=== PATIENT | male | born 1975 | race Caucasian/White ===

== ENCOUNTER → 2017-06-03 13:35 | Outpatient (CLI) | payer BC, SELFPAY ==
--- NOTE | 2017-06-03 13:44 | ECHOD_ITS ---
Reason For Study: HYPERTENSION Procedure This was a 2D Doppler, Color Flow transthoracic echocardiogram. Exam performed in department. Left Ventricle Normal size and thickness. The estimated ejection fraction is 65 %. Normal diastology for age. No regional wall motion abnormalities noted. Right Ventricle Normal size and thickness. Normal systolic function. Atria Normal left atrium. Normal right atrium. Normal atrial septum. Mitral Valve The mitral valve is structurally normal. No prolapse or stenosis seen. Tricuspid Valve Normal tricuspid valve. Trivial tricuspid valve insufficiency. Right ventricular systolic pressure estimated to be 23 mmHg. Aortic Valve Normal aortic valve. Trisinus/trileaflet aortic valve. Pulmonic Valve Normal pulmonic valve. Great Vessels Normal aortic root. Normal arch. Normal inferior vena cava. Inferior vena cava collapse with sniff. Pericardium/Pleural No pericardial effusion. MMode/2D Measurements & Calculations LVIDd: 4.7 cm IVSd: 0.94 cm Ao root diam: 3.0 cm LVIDs: 3.0 cm LVPWd: 1.0 cm LA dimension: 3.8 cm RVDd: 3.6 cm FS: 35.4 % LAV(MOD-bp): 53.9 ml EDV(MOD-sp4): 164.3 ml EDV(MOD-sp2): 180.8 ml LAV(MOD-bp) Indexed: 24.3 ml/m2 ESV(MOD-sp4): 61.1 ml EF(MOD-sp2): 66.4 % LAV(MOD-sp2): 51.4 ml EF(MOD-sp4): 62.8 % LAV(MOD-sp4): 47.8 ml SV(MOD-sp4): 103.1 ml SV(MOD-sp2): 120.0 ml LA A4 area: 18.2 cm2 RA A4 area: 17.4 cm2 Doppler Measurements & Calculations MV E max sylvia: 72.9 cm/sec Ao V2 max: 129.5 cm/sec LV V1 max: 124.4 cm/sec MV A max sylvia: 59.3 cm/sec Ao max P.7 mmHg LV V1 max P.2 mmHg MV E/A: 1.2 PA V2 max: 139.5 cm/sec PI end-d sylvia: 109.0 cm/sec TR max sylvia: 209.8 cm/sec TR max P.6 mmHg Interpretation Summary The estimated ejection fraction is 65 %. Normal diastology for age. Trivial tricuspid valve insufficiency. Right ventricular systolic pressure estimated to be 23 mmHg. There is no comparison study available. Ordering Physician: CHRISTIANO ENGLE Referring Physician: DOCTOR, OUT OF TOWN Performed By: Karli Barriga, KUNAL, RVT
== END ==
DX: I10 Essential (primary) hypertension (principal); R06.00 Dyspnea, unspecified; R94.31 Abnormal electrocardiogram [ECG] [EKG]
CPT/HCPCS: 93306

== ENCOUNTER → 2023-04-24 | Outpatient (CLI) | payer BC, SELFPAY ==
--- NOTE | 2023-04-24 09:51 | ECHOD_ITS ---
Reason For Study: SOB ON EXERTION Procedure This was a 2D Doppler, Color Flow transthoracic echocardiogram. Exam performed in department. Left Ventricle Normal LV size. Left ventricular systolic function is normal. The estimated ejection fraction is 70 %. Normal diastology for age. No regional wall motion abnormalities noted. Right Ventricle Normal RV size. Normal systolic function. Atria The left and right atria are normal. Normal right atrium. Mitral Valve Normal mitral valve. Tricuspid Valve Normal tricuspid valve. Mild tricuspid valve insufficiency. Pulmonary artery systolic pressure is 24 mmHg. Aortic Valve Normal aortic valve. Pulmonic Valve Normal pulmonic valve. Great Vessels Normal aortic root. The pulmonary artery is normal size. Normal inferior vena cava. Pericardium/Pleural No pericardial effusion. MMode/2D Measurements & Calculations LVIDd: 4.1 cm IVSd: 0.99 cm Ao root diam: 3.0 cm LVIDs: 2.8 cm LVPWd: 0.82 cm RVDd: 3.9 cm FS: 30.3 % LAV(MOD-bp): 49.0 ml LVAd ap4: 38.1 cm2 SV(MOD-sp4): 87.5 ml LAV(MOD-bp) Indexed: 22.2 ml/m2 LVLd ap4: 8.9 cm LAV(MOD-sp2): 48.8 ml EDV(MOD-sp4): 131.0 ml LAV(MOD-sp4): 45.7 ml EDV(sp4-el): 138.0 ml LVAs ap4: 19.4 cm2 LVLs ap4: 7.3 cm ESV(MOD-sp4): 43.5 ml ESV(sp4-el): 43.5 ml EF(MOD-sp4): 66.8 % EF(sp4-el): 68.5 % SV(sp4-el): 94.5 ml LA A4 area: 17.6 cm2 LA dimension(2D): 3.5 cm RA A4 area: 17.9 cm2 Time Measurements MV dec time: 0.26 sec Doppler Measurements & Calculations MV E max hank: 67.8 cm/sec Lat Peak E' Hank: 16.9 cm/sec Med Peak E' Hank: 12.7 cm/sec MV A max hank: 63.1 cm/sec E/E' lat: 4.0 E/E' med: 5.3 MV E/A: 1.1 Ao V2 max: 135.2 cm/sec LV V1 max: 136.5 cm/sec PA V2 max: 128.1 cm/sec Ao max P.3 mmHg LV V1 max P.5 mmHg TR max hank: 233.4 cm/sec TR max P.8 mmHg ECHO/Echo Complete Interpretation Summary Normal LV size. Left ventricular systolic function is normal. The estimated ejection fraction is 70 %. Structurally normal valves. Ordering Physician: Yareli Jasso Referring Physician: Yareli Jasso Performed By: Cyn Ruiz RDCS
--- OUTSIDE RECORDS SUMMARY | 2023-04-24 10:16 | XMS RPT_ITS | CCD ---
Author Name Unknown Address [address] [place] [address] Organization [facility] Care Team Providers Care Clinical Science Liaison Name Role Phone KADIE ARIAS, CHRISTIANO Attending Unavailable KADIE ARIAS, CHRISTIANO Primary Care Unavailable KADIE ARIAS, CHRISTIANO Attending Unavailable KADIE ARIAS, CHRISTIANO Primary Care Unavailable KADIE ARIAS, CHRISTIANO Attending Unavailable KADIE ARIAS, CHRISTIANO Primary Care Unavailable KADIE ARIAS, CHRISTIANO Attending Unavailable KADIE ARIAS, CHRISTIANO Primary Care Unavailable KADIE ARIAS, CHRISTIANO Attending Unavailable KADIE ARIAS, CHRISTIANO Primary Care Unavailable KADIE ARIAS, CHRISTIANO Primary Care Unavailable KADIE ARIAS, CHRISTIANO Attending Unavailable Results Test Name Value Interpretation Reference Range Facil ity Encounters Encounter Date Encounter Type Care Provider Facility Start: 03-27-2023 ambulatory CHRISTIANO ENGLE MD Facilit y:[email or web address] Start: 02-12-2023 ambulatory CHRISTIANO ENGLE MD Facilit y:[facility] Start: 02-09-2023 End: 02-10-2023 ambulatory CHRISTIANO ENGLE MD Facility:[id number] Start: 02-09-2023 End: 02-10-2023 ambulatory CHRISTIANO ENGLE MD Facility:[id number] Start: 08-28-2022 End: 08-28-2022 ambulatory CHRISTIANO ENGLE MD Facility:[facility] Payers Date Payer Category Payer Unknown [id number] 1975 Unknown [id number] 2.16.8 [id number] 1975 Unknown [id number] 2.16.8 [id number] 1975 Unknown [id number] 2.16.8 [id number] 1975 Unknown [id number] 2.16.8 [id number] 1975 Unknown [id number] 2.16.8 [id number] 1975 Unknown [id number] 2.16.8 [id number] Unknown Summary Purpose Family History No Family History Records FoundNo Family History Records FoundNo Family History Records Found Advance Directives No Advanced Directives Records FoundNo Advanced Directives Records FoundNo Advanced Directives Records Found Additional Source Comments (unrecognized sect ion and content) No Status Records FoundNo Status Records FoundNo Status Records Found INFORMATION SOURCE (unrecogn ized section and content) DATE CREATED AUTHOR AUTHOR'S ORGANIZ ATION 02/14/2023 [facility] DATE CREATED AUTHOR AUTHOR'S ORGANIZ ATION 03/29/2023 [facility] FOR RECORDS PERTAINING TO PATIENTS WHO ARE OR HAVE BEEN ENROLLED IN A CHEMICAL DEPENDENCY/SUBSTANCEABUSE PROGRAM, SOME INFORMATION MAY BE OMITTED. This clinical summary was aggregated from multiple sources. Caution should be exercised in using it in the provision of clinical care. This summary normalizes information from multiple sources, and as a consequence, information in this document may materially change the coding, format and clinical context of patient data. In addition, data may be omitted in some cases. CLINICAL DECISIONS SHOULD BE BASED ON THE PRIMARY CLINICAL RECORDS. [facility] [employer] [facility]. provides no warranty or guarantee of the accuracy or completeness of information in this document.
== END | disposition home or self-care (01) ==
LOC: CVS 09:47
PROVIDERS: PCP Internal Medicine Geriatric Medicine; Referring Provider Internal Medicine Geriatric Medicine; Visit Provider Internal Medicine Geriatric Medicine
DX: R06.02 Shortness of breath (principal); R94.31 Abnormal electrocardiogram [ECG] [EKG]
CPT/HCPCS: 93306

== ENCOUNTER 2023-04-29 08:28 | Day surgery (SDC) | payer BC, SELFPAY ==
--- OUTSIDE RECORDS SUMMARY | 2023-04-29 08:50 | XMS RPT_ITS | CCD ---
Author Name Unknown Address [address] [place] [address] Organization [facility] Care Team Providers Care Rectangular [employer] Cooper Name Role Phone KADIE ARIAS, CHRISTIANO Attending [...] 02-09-2023 End: 02-10-2023 ambulatory CHRISTIANO ENGLE MD Facility:[id number] Start: 02-09-2023 End: 02-10-2023 ambulatory CHRISTIANO ENGLE MD Facility:[facility] Start: 08-28-2022 End: 08-28-2022 ambulatory CHRISTIANO ENGLE MD Facility:[facility] Payers Date Payer Category Payer Unknown [id number] 1975 Unknown [id number] 2.16.8 [id number] 1975 Unknown [id number] 2.16.8 [id number] 1975 Unknown [id number] 2.16.8 [id number] 1974 Unknown [id number] 2.16.8 [id number] 1974 Unknown [id number] 2.16.8 [id number] 1975 Unknown [id number] 2.16.8 [id number] Unknown Summary Purpose Family History No Family [...] DATE CREATED AUTHOR AUTHOR'S ORGANIZ ATION 02/14/2023 [facility] DATE CREATED AUTHOR AUTHOR'S ORGANIZ ATION 03/29/2023 [facility] FOR RECORDS PERTAINING TO [...] BE BASED ON THE PRIMARY CLINICAL RECORDS. [facility] [employer] [facility]. provides no warranty or guarantee of the accuracy or completeness of information in this document.
[2023-04-29] MEDS: Lactated Ringers 1,000 ML 15 ML IV (08:57)
[2023-04-29 09:02] VITALS: BP 121/70; PULSE 68; RESP 18; TEMP 36.2; O2SAT 100; BMI 29.9
--- NOTE | 2023-04-29 09:32 | PCM.HP.STD ---
HPI - General General Date of Admission: 04/29/23 Date of Service: 04/29/23 Chief Complaint: Screening colonoscopy HPI Narrative SHAREE HIDALGO, is a 47 M who presents today for screening colonoscopy. He is not have any problems with he is not have any bowel pain. He does not have any chest pain or shortness of breath. He has past medical history of psoriatic arthritis on treatment. He did have a colonoscopy was over 15 years ago. He denies any lower GI bleeding. He denies any constipation. There has been no change in his bowel or bladder habits recently. [facility] Medical History (Updated 04/24/23 @ 12:26 by Deya Tenorio) 1st degree AV block Anxiety Back pain DDD (degenerative disc disease) High cholesterol History of echocardiogram History of hiatal hernia HTN (hypertension) Hx of colonic polyps Hypercholesteremia Motion sickness Non-smoker JORGE (obstructive sleep apnea) Psoriasis Wears glasses Home Medications atorvastatin 40 mg tablet 40 mg PO DAILY 04/02/23 [History Last Taken Unknown] azelastine 137 mcg (0.1 %) nasal spray aerosol 1 spray intranasal BID PRN ALLERGIES 04/02/23 [History Last Taken Unknown] cholecalciferol (vitamin D3) 125 mcg (5,000 unit) capsule 125 mcg PO DAILY 04/02/23 [History Last Taken Unknown] scopolamine base 1 mg over 3 days transdermal patch 1 patch transdermal Q72H PRN motion sickness 04/02/23 [History Last Taken Unknown] ixekizumab 80 mg/mL subcutaneous auto-injector (Taltz Autoinjector) 80 mg subcut .Q2 WEEKS 04/24/23 [History Last Taken Unknown] ketoconazole 2 % topical cream 1 applic topical DAILY 04/24/23 [History Last Taken Unknown] tapinarof 1 % topical cream (Vtama) 1 applic topical DAILY 04/24/23 [History Last Taken Unknown] Allergy/AdvReac Type Severity Reaction Status Date / Time amoxicillin Allergy Itching Verified 04/24/23 12:04 cat dander Allergy Itching Verified 04/24/23 12:04 grass pollen Allergy Itching Verified 04/24/23 12:04 house dust Allergy Itching Verified 04/24/23 12:04 Penicillins Allergy Itching Verified 04/24/23 12:04 Family History (Updated 04/02/23 @ 09:05 by Josseline Hussein) Mother Breast cancer Surgical History (Updated 04/24/23 @ 12:26 by Deya Tenorio) History of surgery on wrist Hx of colonoscopy Hx of esophagogastroduodenoscopy Hx of oral surgery Social History (Updated 04/02/23 @ 09:07 by Josseline Hussein) current occupational status: employed Smoking Status: Never smoker alcohol intake: current alcohol intake frequency: a few times a week Alcohol type: beer substance use type: does not use ROS Review of Systems ROS Unobtainable: other Constitutional Constitutional: Denies fatigue, fever(s), poor appetite, weight gain or weight loss ENT HEENT: Denies mouth lesions Cardiovascular Cardiovascular: Denies abdominal bloating, abdominal edema or abdominal pain Respiratory/Chest Respiratory/Chest: Denies change in mental status, change in phlegm color, chest congestion or chest tightness Gastrointestinal Gastrointestinal: Denies belching, bloating, change in bowel habits, change in stool character, chewing difficulty, coffee ground emesis, constipation, cramping, diarrhea, dyspepsia, dysphagia, early satiety, excessive flatus, fecal incontinence, heartburn, hematemesis, hematochezia, hemorrhoids, loose stools, melena, nausea, odynophagia, rectal bleeding, tenesmus, vomiting or weight changes Genitourinary Genitourinary: Denies abdominal discomfort, burning urination or itching Musculoskeletal Musculoskeletal: Reports as per HPI; Denies muscle weakness or myalgias Integumentary Integumentary: Denies jaundice Neurologic Neurologic: Denies lack of coordination or weakness Psychiatric Psychiatric: Denies confusion, depression, memory loss, mood swings, paranoia or suicidal ideation Endocrine Endocrinology: Denies systems reviewed and no addt'l complaints, except as documented Hematologic/Lymphatic Hematologic/Lymphatic: Denies anemia, easy bleeding, easy bruising or lymphadenopathy Allergic/Immunologic Allergic/Immunologic: Denies systems reviewed and no addt'l complaints, except as documented Vital Signs Vital Signs Vital Signs: 04/29/23 09:02 04/29/23 09:02 Temperature 97.1 F L Temperature Source Temporal Pulse Rate 68 Respiratory Rate 18 Respiratory Pattern Normal Blood Pressure 121/70 H Blood Pressure Mean 87 Blood Pressure Source Monitor Blood Pressure Position Semi-Fowlers Blood Pressure Location Left Arm Pulse Ox 100 Oxygen Delivery Method Room Air Weight Weight: 215 lb Body Mass Index (BMI) 29.9 Physical Exam Const alert, oriented x3, no apparent distress, healthy appearing and well nourished General Appearance: cooperative, comfortable, well kempt and well developed Orientation / Consciousness: awake and oriented to person HEENT Head and Scalp: normocephalic and atraumatic Face and Sinus: normal facial exam Mouth: oral and palatal mucosa normal Eyes General Eye: normal appearance of both eyes Neck full ROM Lymph Lymphatic: no lymphadenopathy noted Chest inspection of chest normal Resp normal respiratory effort and no use of accessory muscles Cardio regular rate and regular rhythm GI normal to inspection, nondistended, normoactive bowel sounds, soft to palpation, non-tender, non-distended and no masses Auscultation: normoactive bowel sounds Palpation: soft Percussion: normal to percussion Rectal Exam: visual inspection normal and normal sphincter tone no CVA tenderness Back/Spine no CVA tenderness and normal ROM Extremity normal to inspection Peripheral Pulses: Yes pulses 2+ throughout Skin no rashes or lesions noted General Skin Exam: no breakdown, elasticity normal and turgor normal Neuro oriented x3 Motor Exam: strength 5/5 throughout Psych mental status grossly normal Appearance: grossly normal Attitude: calm Activity / Motor Behavior: appropriate eye contact Speech: normal speech Thought Process: normal thought process Thought Content: normal thought content Attention / Concentration: attention grossly intact Memory / Cognition: memory grossly intact Insight: insight good Judgement: judgement good Assessment & Plan Assessment/Plan (1) Encounter for screening for malignant neoplasm of colon: PLAN: He was explained alternatives, risk, benefits including not withstanding bleeding, infection, sepsis, perforation, need for return to . He will have an ASA of 3.
[2023-04-29 10:19] VITALS: BP 109/85; BP 121/70; PULSE 68; RESP 16; TEMP 36.6; O2SAT 99
--- NOTE | 2023-04-29 10:20 | OP.COLON_ITS ---
Patient Name: Dedrick Mcconnell Procedure Date: 04/29/2023 9:54 AM Date of : 1975 Age: 47 Procedure: Colonoscopy Indications: Screening for colorectal malignant neoplasm Providers: Jim Calloway DO Referring MD: Jim Calloway DO Medicines: Monitored Anesthesia Care Patient Profile: This is a 47 year old male. Refer to note in patient chart for documentation of history and physical. Last Colonoscopy: none. The patient's first colonoscopy is today. Complications: No immediate complications. Procedure: Pre-Anesthesia Assessment: - Prior to the procedure, a History and Physical was performed, and patient medications and allergies were reviewed. The patient is competent. The risks and benefits of the procedure and the sedation options and risks were discussed with the patient. All questions were answered and informed consent was obtained. Patient identification and proposed procedure were verified by the physician in the pre-procedure area. Mental Status Examination: alert and oriented. Airway Examination: normal oropharyngeal airway and neck mobility. Respiratory Examination: clear to auscultation. CV Examination: normal. Prophylactic Antibiotics: The patient does not require prophylactic antibiotics. Prior Anticoagulants: The patient has taken no anticoagulant or antiplatelet agents. ASA Grade Assessment: II - A patient with mild systemic disease. After reviewing the risks and benefits, the patient was deemed in satisfactory condition to undergo the procedure. The anesthesia plan was to use monitored anesthesia care (MAC). Immediately prior to administration of medications, the patient was re-assessed for adequacy to receive sedatives. The heart rate, respiratory rate, oxygen saturations, blood pressure, adequacy of pulmonary ventilation, and response to care were monitored throughout the procedure. The physical status of the patient was re-assessed after the procedure. After I obtained informed consent, the scope was passed under direct vision. Throughout the procedure, the patient's blood pressure, pulse, and oxygen saturations were monitored continuously. The Colonoscope was introduced through the anus and advanced to the cecum, identified by appendiceal orifice and ileocecal valve. The colonoscopy was performed without difficulty. The patient tolerated the procedure well. The quality of the bowel preparation was adequate. The ileocecal valve, appendiceal orifice, and rectum were photographed. Scope In: 10:02:55 AM Scope Withdrawal Time 0 hours 8 minutes 26 seconds Scope Out: 10:14:49 AM Total Procedure Duration Time 0 hours 11 minutes 54 seconds Findings: The perianal and digital rectal examinations were normal. The colon (entire examined portion) appeared normal. Non-bleeding internal hemorrhoids were found during retroflexion. The hemorrhoids were Grade II (internal hemorrhoids that prolapse but reduce spontaneously). Impression: - The entire examined colon is normal. - Non-bleeding internal hemorrhoids. - No specimens collected. Recommendation: - Repeat colonoscopy in 10 years for screening purposes. - Continue present medications. Procedure Code(s): --- Professional --- G0121, Colorectal cancer screening; colonoscopy on individual not meeting criteria for high risk CPT copyright 2021 [employer]. All rights reserved. The codes documented in this report are preliminary and upon preschool substitute teacher review may be revised to meet current compliance requirements. Jim Calloway DO 04/29/2023 10:19:50 AM This report has been signed electronically. Number of Addenda: 0 Note Initiated On: 04/29/2023 9:54 AM
--- NOTE | 2023-04-29 10:20 | OP.CCLET_ITS ---
04/29/2023 Yareli Jasso Md Re : Colonoscopy procedure for Dedrick Mcconnell Dear Dr. Jasso This procedure was performed on Saturday, April 29, 2023. My impressions and recommendations are as follows: Impressions : - The entire examined colon is normal. - Non-bleeding internal hemorrhoids. - No specimens collected. Recommendations : - Repeat colonoscopy in 10 years for screening purposes. - Continue present medications. My findings are described in the full procedure note, which is enclosed. If I can be of further assistance, please feel free to contact me at . Sincerely, Jim Friend, DO 04/29/2023 10:19:50 AM This report has been signed electronically.
[2023-04-29 10:25] VITALS: BP 112/75; BP 121/70; PULSE 60; RESP 16; O2SAT 98
[2023-04-29 10:30] VITALS: BP 110/64; BP 121/70; PULSE 61; RESP 16; O2SAT 98
[2023-04-29 10:32] VITALS: BP 108/63; BP 121/70; PULSE 59; RESP 16; TEMP 36.5; O2SAT 98
[2023-04-29 10:48] VITALS: BP 121/70
== END 2023-04-29 11:42 | disposition home or self-care (01) ==
LOC: EN 08:30 → AC 08:30
PROVIDERS: PCP Internal Medicine Geriatric Medicine; Referring Provider Internal Medicine Gastroenterology; Visit Provider Internal Medicine Gastroenterology
PROC: 0DJD8ZZ Inspection of Lower Intestinal Tract, Via Natural or Artificial Opening Endoscopic (ICD-10-PCS; CPT 45378; principal; 2023-04-29 09:40)
DX: Z12.11 Encounter for screening for malignant neoplasm of colon (principal); K64.1 Second degree hemorrhoids; I10 Essential (primary) hypertension; E78.00 Pure hypercholesterolemia, unspecified; Z86.010 Personal history of colon polyps
CPT/HCPCS: G0121; J7120; J2405